=== PATIENT | female | born 1990 | race Hispanic/Latino ===

== ENCOUNTER 2020-04-10 20:27 | Emergency (ER) | payer SELFPAY ==
[~2020-04-10] VITALS: Ht 152.4 cm; Wt 86.0 kg
[~2020-04-10 20:27] MED LIST: CIPROFLOXACN500 MG PO; LORTAB5 PO; NO CURRENT MEDS; ZOFRAN ODT4 MG OR
[2020-04-10 21:23] LABS: HEMATOCRIT 38.3 % (37.0-47.0); HEMOGLOBIN 12.5 g/dl (12.0-16.0); IMMATURE GRANULOCYTES 0.4 % (0.0-5.0); MEAN CELL VOLUME 93.9 fL CALC (80.0-100.0); MEAN CORPUSCULAR HGB 30.6 pG CALC (26.0-32.0); MEAN CORPUSCULAR HGB CONC 32.6 g/dL CAL (32.0-36.0); NEUT# 8.91 thou/uL (2.00-7.15); RED BLOOD COUNT 4.08 mill/uL (4.20-5.60); RED CELL DISTRI WIDTH 12.2 % (11.5-15.5)
[2020-04-10 21:24] LABS: URINE BILIRUBIN - DIPSTICK NEGATIVE (NEGATIVE); URINE BLOOD DIPSTICK TRACE-INTACT (NEGATIVE); URINE COLOR YELLOW; URINE GLUCOSE - DIPSTICK NEGATIVE (NEGATIVE); URINE KETONE NEGATIVE (NEGATIVE); URINE LEUK ESTERASE NEGATIVE (NEGATIVE); URINE NITRITE - DIPSTICK NEGATIVE (Negative); URINE PROTEIN - DIPSTICK TRACE mg/dL (NEG-TRACE); URINE SPECIFIC GRAVITY 1.025; URINE UROBILINOGEN - DIPSTICK 0.2 E.U./dL (0.2)
[2020-04-10 21:45] LABS: ALKALINE PHOSPHATASE 99 u/l (38-126); AMYLASE 65 u/l (30-110); ANION GAP 15 (6-22 (CALC)); BUN 6 mg/dL (7-17); BUN/CREATININE RATIO 12 (12-20 (CALC)); CARBON DIOXIDE 22 mmol/l (22-30); CHLORIDE 105 mmol/l (95-108); CREATININE 0.5 mg/dL (0.5-1.0); GFR > 60 ML/MIN (>=60 (CALC)); GFR FOR AFR.AMER. > 60 ML/MIN (>=60 (CALC)); LIPASE 73 u/l (23-300); POTASSIUM 3.9 mmol/l (3.5-5.1); SGOT/AST 29 u/l (14-36); SODIUM 138 mmol/l (137-146)
[2020-04-10 21:50] LABS: ALBUMIN 4.6 g/dL (3.2-5.0); BILIRUBIN, TOTAL 0.3 mg/dL (0.0-1.4); TOTAL PROTEIN 7.7 g/dL (6.3-8.2)
[2020-04-10] MEDS ORDERED: METRONIDAZOL500 MG PO (23:20)
[2020-04-10] MEDS ORDERED: TRAMADOL HCL50 MG PO (23:20)
[2020-04-10] MEDS ORDERED: CIPROFLOXACN500 MG PO (23:20)
[2020-04-11 01:51] VITALS: BP 122/65
== END 2020-04-11 01:51 | disposition home or self-care (01) | DRG 392 ==
LOC: ED 20:27
PROVIDERS: Family Medicine
DX: R10.32 Left lower quadrant pain (principal)
CPT/HCPCS: Q9967

== ENCOUNTER 2020-04-12 14:48 | Observation (INO) | payer OTHER ==
[2020-04-12] VITALS (8 sets, daily range): BP systolic 99–111; BP diastolic 61–68
[~2020-04-12] VITALS: Ht 152.4 cm; Wt 88.5 kg
[~2020-04-12 14:48] MED LIST changes: +METRONIDAZOL500 MG PO; +TRAMADOL HCL50 MG PO
--- NOTE | 2020-04-12 15:13 | NUR ---
PATIENT TO ROOM VIA WHEELCHAIR AND PHYSICIAN AT BEDSIDE FORF EVAL
[2020-04-12 15:59] LABS: HEMATOCRIT 35.7 % (37.0-47.0); IMMATURE GRANULOCYTES 0.6 % (0.0-5.0); MEAN CORPUSCULAR HGB 31.3 pG CALC (26.0-32.0); MEAN CORPUSCULAR HGB CONC 33.6 g/dL CAL (32.0-36.0); NEUT# 18.07 thou/uL (2.00-7.15); RED BLOOD COUNT 3.84 mill/uL (4.20-5.60); RED CELL DISTRI WIDTH 12.3 % (11.5-15.5)
--- NOTE | 2020-04-12 16:00 | NUR ---
PT ARRIVES WITH PAIN OF 10/10 IN THE RIGHT LOWER QUAD AREA. SHE STATES THAT SHE HAS NOT BEEN ABLE TO EAT SINCE THE DAY BEFORE YESTERDAY AND HAS ONLY BEEN DRINKING FLUIDS. AFIBRILE. STATES INCREASED PAIN TODAY AND STARTED TWO DAYS AGO. DENIES VOMITING BUT HAS NAUSEA. WILL CONTINUE TO MONITOR.
[2020-04-12 16:02] LABS: URINE BLOOD DIPSTICK MODERATE (NEGATIVE); URINE GLUCOSE - DIPSTICK NEGATIVE (NEGATIVE); URINE KETONE NEGATIVE (NEGATIVE); URINE LEUK ESTERASE NEGATIVE (NEGATIVE); URINE NITRITE - DIPSTICK NEGATIVE (Negative); URINE PROTEIN - DIPSTICK 100 mg/dL (NEG-TRACE); URINE SPECIFIC GRAVITY >=1.030
[2020-04-12 16:05] LABS: URINE BILIRUBIN - DIPSTICK SMALL (NEGATIVE); URINE COLOR AMBER
[2020-04-12 16:16] LABS: URINE SQUAMOUS EPITHELIAL CELL FEW EPI/hpf (0-FEW); URINE WBC 0-2 WBC/hpf (0-5)
[2020-04-12 16:19] LABS: ALBUMIN 4.1 g/dL (3.2-5.0); ALKALINE PHOSPHATASE 93 u/l (38-126); ANION GAP 14 (6-22 (CALC)); BUN 5 mg/dL (7-17); BUN/CREATININE RATIO 10 (12-20 (CALC)); CARBON DIOXIDE 26 mmol/l (22-30); CHLORIDE 97 mmol/l (95-108); CREATININE 0.5 mg/dL (0.5-1.0); GFR > 60 ML/MIN (>=60 (CALC)); GFR FOR AFR.AMER. > 60 ML/MIN (>=60 (CALC)); LIPASE 36 u/l (23-300); POTASSIUM 3.8 mmol/l (3.5-5.1); SGOT/AST 20 u/l (14-36); SODIUM 133 mmol/l (137-146); TOTAL PROTEIN 7.3 g/dL (6.3-8.2)
[2020-04-12 16:26] LABS: BILIRUBIN, TOTAL 1.3 mg/dL (0.0-1.4)
--- NOTE | 2020-04-12 16:46 | NUR ---
PT TAKEN TO OR BY NURSE.
--- NOTE | 2020-04-12 17:30 | NUR ---
GAVE REPORT TO JOSEPH
--- NOTE | 2020-04-12 17:30 | NUR ---
REPORT RECEIVED FROM AELX BUTCHER.
--- NOTE | 2020-04-12 20:48 | NUR ---
INCISION SLIGHT SHADOWING TO MID INCISION, OTHERWISE CDI IN ALL OTHER INCISION DRESSING. JPDRESSING CDI WITH 75CC OF BLOODY OUTPUT EMPTIED AT THIS TIME. PT REPORTING MODERATE AMOUNT OF PAIN, WILL CHECK FOR ORDERS AND MEDICATED ORDERS PROVIDE. SISTER IS AT BEDSIDE AT THIS TIME. SPOT SPRAYER IN WT PT OBTAINING V/S AT THIS TIME.
--- NOTE | 2020-04-12 22:11 | NUR ---
RECIEVED PT FROM OR AT 1930 VIA STRETCHER. PT ABULATED TO BED. PT SWISS SPEAKING ONLY; A&O. PT DENIES SOB; LUNGS CLEAR EVEN AND UNLABORED. HEART RATE ELEVATED AT 120. C/O OF PAIN AND NAUSEA, WILL GIVE PRN MEDS. ROOM, BED AND CALL POWELL INSTRUCTIONS PROVIDED. ALL SAFETY PRECAUTIONS IN PLACE.
--- NOTE | 2020-04-13 00:11 | NUR ---
PT MEDICATED ORDERS PROVIDE. DRESSING TO ABD SURGICAL SITES APPEAR CDI. MAYRA DRAIN WITH GOOD BULB SUCTION. PT DENIES ANY NEEDS AT THIS TIME. ASSISTED PT REPOSITIONING IN BED. CALL LIGHT AT SIDE.
--- NOTE | 2020-04-13 02:58 | NUR ---
PT CONTINUES BEFORE SLEEPING IN BED, NO DISTRESS NOTED. CALL LIGHT IN REACH. MOLLY CONTINUE TO MONITOR.
[2020-04-13 04:00] VITALS: BP 110/68
[2020-04-13 08:12] VITALS: BP 108/66
--- NOTE | 2020-04-13 08:12 | NUR ---
PT SITTING IN BED WITH SISTER AT BEDSIDE. A&O X3. NO DISTRESS NOTED. PT C/O OF ABD PAIN. UMBILICAL DRESSING WITH BLOOD PRESENT. MAYRA DRAIN IN PLACE DRAINING SANGUINEOUS FLUID. PT STATES DIET IS BEING TOLERATED WELL. BILATERAL SCDS IN PLACE. ASSESSMENT COMPLETED. DISCUSSED POC. CALL LIGHT IN REACH. CONTINUE TO MONITOR.
[2020-04-13 11:00] VITALS: BP 112/65
--- NOTE | 2020-04-13 11:26 | NUR ---
PT STATES SHE HAS HAD A BM LOOSE IN CONSISTENCY. PT STEADY IN GAIT WHILE AMBULATING BACK TO BED. CALL LIGHT IN REACH. CONTINUE TO MONITOR.
[2020-04-13 15:00] VITALS: BP 111/74
--- NOTE | 2020-04-13 16:00 | NUR ---
DR JAMES AT BEDSIDE DISCUSSING D/C INSTRUCTIONS
--- NOTE | 2020-04-13 17:23 | NUR ---
Discharge instructions given. Patient verbalizes understanding of same. Discharged in stable condition via wheelchair to home accompanied by this telegraphic typewriter operator and spouse. All belongings sent with pt.
== END 2020-04-13 17:23 | disposition home or self-care (01) ==
LOC: ED 14:48 → ED-I 15:22 → ED 16:08 → ED-I 16:09 → MS2 16:10
PROVIDERS: Family Medicine; ADMIT Surgery; ATTEND Surgery
DX: K35.32 Acute appendicitis with perforation, localized peritonitis, and gangrene, without abscess (principal)
CPT/HCPCS: J0131; J1100; J1650; J2710

== ENCOUNTER 2024-04-04 02:08 | Emergency (ER) | payer SELFPAY ==
[~2024-04-04] VITALS: Ht 152.4 cm; Wt 78.0 kg
[2024-04-04] VITALS (9 sets, daily range): BP systolic 100–124; BP diastolic 57–76
[2024-04-04] MEDS ORDERED: SODIUM CHLORIDE 0.9% 1,000 ML IV STA (02:24)
[2024-04-04] MEDS ORDERED: PROMETHAZINE HCL 25 MG/ML AMP IV ONE (02:25)
[2024-04-04] MEDS ORDERED: KETOROLAC TROMETHAMINE 30 MG/ML SDV IV ONE (02:25)
[2024-04-04] MEDS ORDERED: MORPHINE SULFATE 4 MG/ML VIAL IV ONE (02:40)
[2024-04-04 02:42] LABS: BASO% 0.4 % (0-3); EOS% 2.2 % (0-8); HEMATOCRIT 34.5 % (37.0-47.0); HEMOGLOBIN 11.1 g/dl (12.0-16.0); IMMATURE GRANULOCYTES 0.1 % (0.0-5.0); MEAN CELL VOLUME 90.3 fL CALC (80.0-100.0); MEAN CORPUSCULAR HGB 29.1 pG CALC (26.0-32.0); MEAN CORPUSCULAR HGB CONC 32.2 g/dL CAL (32.0-36.0); NEUT# 5.54 thou/uL (2.00-7.15); NEUT% 52.3 % (42-76); RED BLOOD COUNT 3.82 mill/uL (4.20-5.60); RED CELL DISTRI WIDTH 15.7 % (11.5-15.5)
[2024-04-04 02:56] LABS: ALBUMIN 4.2 g/dL (3.2-5.0); BILIRUBIN, TOTAL 0.3 mg/dL (0.02-1.3); CREATININE 0.7 mg/dL (0.5-1.0); POTASSIUM 3.3 mmol/l (3.5-5.1); TOTAL PROTEIN 7.3 g/dL (6.3-8.2)
[2024-04-04 03:04] LABS: URINE BILIRUBIN - DIPSTICK Negative (NEGATIVE); URINE BLOOD DIPSTICK Moderate (NEGATIVE); URINE COLOR Yellow; URINE GLUCOSE - DIPSTICK Negative (NEGATIVE); URINE KETONE Negative (NEGATIVE); URINE LEUK ESTERASE Trace (NEGATIVE); URINE NITRITE - DIPSTICK Negative (Negative); URINE PROTEIN - DIPSTICK Negative (NEG-TRACE); URINE SPECIFIC GRAVITY 1.015; URINE UROBILINOGEN - DIPSTICK 0.2 E.U./dL (0.2)
[2024-04-04 03:10] LABS: URINE FINE GRAN CAST FEW lpf; URINE SQUAMOUS EPITHELIAL CELL FEW EPI/hpf (0-FEW); URINE WBC 0-2 WBC/hpf (0-5)
[2024-04-04] MEDS ORDERED: DICYCLOMINE HYD10 MG PO (05:30)
[2024-04-04] MEDS ORDERED: PROMETHAZINE HY25 M1 PO (05:30)
== END 2024-04-04 05:41 | disposition home or self-care (01) | DRG 446 ==
LOC: ED 02:08
PROVIDERS: Family Medicine
DX: K82.1 Hydrops of gallbladder (principal)
CPT/HCPCS: Q9967